=== PATIENT | female | born 1960 | race Caucasian/White ===

== ENCOUNTER → 2017-03-17 | Outpatient (CLI) | payer BC ==
--- NOTE | 2017-03-18 10:12 | MM ---
Reason for exam: screening (asymptomatic). Last mammogram was performed 1 year and 4 months ago. History: Took hormonal contraceptives for 7 years. Physical Findings: A clinical breast exam by your physician is recommended on an annual basis and results should be correlated with mammographic findings. MG Screening Mammo w CAD Bilateral CC and MLO view(s) were taken. Prior study comparison: November 28, 2015, bilateral MG screening mammo w CAD. October 08, 2014, bilateral MG screening mammo w CAD. April 28, 2013, bilateral digital screening mammo w/CAD. The breast tissue is heterogeneously dense. This may lower the sensitivity of mammography. No significant changes when compared with prior studies. ASSESSMENT: Negative, BI-RAD 1 RECOMMENDATION: Routine screening mammogram of both breasts in 1 year.
== END | disposition home or self-care (01) ==
LOC: RADMAMWWP 16:25
PROVIDERS: ATTEND Obstetrics & Gynecology
DX: Z12.31 Encounter for screening mammogram for malignant neoplasm of breast (principal)

== ENCOUNTER → 2018-04-08 | Outpatient (CLI) | payer BC ==
--- NOTE | 2018-04-12 09:06 | MM ---
Reason for exam: screening (asymptomatic). Last mammogram was performed 1 year and 1 month ago. History: Patient is postmenopausal. Took hormonal contraceptives for 7 years. Physical Findings: A clinical breast exam by your physician is recommended on an annual basis and results should be correlated with mammographic findings. MG 3D Screening Mammo W/Cad Bilateral CC and MLO view(s) were taken. Prior study comparison: March 17, 2017, bilateral MG screening mammo w CAD. November 28, 2015, bilateral MG screening mammo w CAD. The breast tissue is heterogeneously dense. This may lower the sensitivity of mammography. No significant changes when compared with prior studies. ASSESSMENT: Negative, BI-RAD 1 RECOMMENDATION: Routine screening mammogram of both breasts in 1 year.
== END | disposition home or self-care (01) ==
LOC: RADMAMWWP 15:23
PROVIDERS: ATTEND Obstetrics & Gynecology
DX: Z12.31 Encounter for screening mammogram for malignant neoplasm of breast (principal)
CPT/HCPCS: 77063; 77067

== ENCOUNTER → 2019-04-19 | Outpatient (CLI) | payer BC ==
--- NOTE | 2019-04-20 12:07 | BD ---
EXAMINATION TYPE: Axial Bone Density DATE OF EXAM: 04/19/2019 COMPARISON: NONE CLINICAL HISTORY: M 87.9 Height: 72 Weight: 185.0 FRAX RISK QUESTIONS: Alcohol (3 or more units per day): no Family History (Parent hip fracture): no Glucocorticoids (More than 3mos): no (Ex: prednisone, prednisolone, methylprednisolone, dexamethasone, and hydrocortisone). History of Fracture in Adulthood: no Secondary Osteoporosis: 1. Type 1 Diabetes: no 2. Hyperthyroidism: no 3. Menopause before 45: no 4. Malnutrition: no 5. Chronic liver disease: no Rheumatoid Arthritis: no Current Tobacco Use: no RISK FACTORS HISTORY OF: History of Wrist Fracture: rt wrist When: as a child Family History of Osteoporosis: no Active: yes Diet low in dairy products/other sources of calcium: no Postmenopausal woman: age 56 Lost more than 2 inches in height since high school: no MEDICATIONS: none Additional History: EXAM MEASUREMENTS: Bone mineral densitometry was performed using the [employer]. Bone mineral density as measured about the Lumbar spine is: ----- L1-L4(G/cm2): 1.183 T Score Values are as follows: ----- L2: -0.9 ----- L3: -0.6 ----- L4: 1.6 ----- L1-L4: 0.0 Bone mineral density : baseline Bone mineral density about the R hip (g/cm2): 1.029 Bone mineral density about the L hip (g/cm2): 0.959 T Score values are as follows: -----R Neck: -0.1 -----L Neck: -0.6 -----R Total: 0.2 -----L Total: -0.1 Bone mineral density : baseline IMPRESSION: Normal (Values between +1 and -1 indicate normal bone mass). Consider repeating this study in 5 year s or sooner if there is some new clinical indication. NOTE: T-SCORE=SD OF THE YOUNG ADULT MEAN.
--- NOTE | 2019-04-21 09:49 | MM ---
Reason for exam: screening (asymptomatic). Last mammogram was performed 1 year ago. History: Patient is postmenopausal. Took hormonal contraceptives for 7 years. Physical Findings: A clinical breast exam by your physician is recommended on an annual basis and results should be correlated with mammographic findings. MG 3D Screening Mammo W/Cad Bilateral CC and MLO view(s) were taken. Prior study comparison: April 08, 2018, bilateral MG 3d screening mammo w/cad. March 17, 2017, bilateral MG screening mammo w CAD. The breast tissue is extremely dense which could obscure a lesion on mammography. There is no discrete abnormality. ASSESSMENT: Negative, BI-RAD 1 RECOMMENDATION: Routine screening mammogram of both breasts in 1 year.
== END | disposition home or self-care (01) ==
LOC: RADMAMWWP 15:20
PROVIDERS: ATTEND Internal Medicine
DX: Z12.31 Encounter for screening mammogram for malignant neoplasm of breast (principal); M85.9 Disorder of bone density and structure, unspecified
CPT/HCPCS: 77063; 77067; 77080

== ENCOUNTER → 2020-12-05 | Outpatient (CLI) | payer BC ==
--- NOTE | 2020-12-05 11:11 | MM ---
Reason for exam: screening (asymptomatic). Last mammogram was performed 1 year and 8 months ago. History: Patient is postmenopausal and history of other cancer. Took hormonal contraceptives for 7 years. Physical Findings: A clinical breast exam by your physician is recommended on an annual basis and results should be correlated with mammographic findings. MG 3D Screening Mammo W/Cad Bilateral CC and MLO view(s) were taken. Prior study comparison: April 19, 2019, bilateral MG 3d screening mammo w/cad. April 08, 2018, bilateral MG 3d screening mammo w/cad. The breast tissue is heterogeneously dense. This may lower the sensitivity of mammography. ASSESSMENT: Negative, BI-RAD 1 RECOMMENDATION: Routine screening mammogram of both breasts in 1 year.
== END | disposition home or self-care (01) ==
LOC: RADMAMWWP 07:30
PROVIDERS: ATTEND Obstetrics & Gynecology
DX: Z12.31 Encounter for screening mammogram for malignant neoplasm of breast (principal); Z78.0 Asymptomatic menopausal state
CPT/HCPCS: 77063; 77067

== ENCOUNTER → 2021-12-22 | Outpatient (CLI) | payer BC ==
--- NOTE | 2021-12-23 07:51 | MM ---
Reason for Exam: Screening (asymptomatic). Last mammogram was performed 1 year(s) and 1 month(s) ago. Patient History: Menarche at age 13. First Full-Term at age 32. Late child-bearing (after 30). Postmenopausal. Other cancer. Patient used Hormonal Contraceptives for 7 years. Risk Values: Mila 5 year model risk: 2.1%. NCI Lifetime model risk: 11.2%. Prior Study Comparison: 04/08/2018 Bilateral Screening Mammogram, [facility]. 04/19/2019 Bilateral Screening Mammogram, [facility]. 12/05/2020 Bilateral Screening Mammogram, [facility]. Tissue Density: The breast tissue is heterogeneously dense. This may lower the sensitivity of mammography. Findings: Analyzed By CAD. There is no suspicious group of microcalcifications or new suspicious mass in either breast. Overall Assessment: Negative, BI-RAD 1 Management: Screening Mammogram of both breasts in 1 year. A clinical breast exam by your physician is recommended on an annual basis and results should be correlated with mammographic findings. Electronically signed and approved by: Raúl Iverson M.D. Radiologis
== END | disposition home or self-care (01) ==
LOC: RADMAMWWP 08:26
PROVIDERS: ATTEND Obstetrics & Gynecology
DX: Z12.31 Encounter for screening mammogram for malignant neoplasm of breast (principal); Z78.0 Asymptomatic menopausal state
CPT/HCPCS: 77063; 77067

== ENCOUNTER → 2023-02-09 | Outpatient (CLI) | payer BC ==
--- NOTE | 2023-02-11 00:28 | MM ---
Reason for Exam: Screening (asymptomatic). Last mammogram was performed 1 year(s) and 1 month(s) ago. Patient History: Menarche at age 13. First Full-Term at age 32. Late child-bearing (after 30). Postmenopausal. Other cancer. Patient used Hormonal Contraceptives for 7 years. Risk Values: Mila 5 year model risk: 2.2%. NCI Lifetime model risk: 10.9%. Prior Study Comparison: 04/19/2019 Bilateral Screening Mammogram, [facility]. 12/05/2020 Bilateral Screening Mammogram, [facility]. 12/22/2021 Bilateral MG 3D screening mammo w/cad, [facility]. Tissue Density: The breast tissue is heterogeneously dense. This may lower the sensitivity of mammography. Findings: Analyzed By CAD. Coarse calcifications posterior upper outer quadrant left breast are unchanged. There is no suspicious group of microcalcifications or new suspicious mass in either breast. Overall Assessment: Benign, BI-RAD 2 Management: Screening Mammogram of both breasts in 1 year. . Patient should continue monthly self-breast exams. A clinical breast exam by your physician is recommended on an annual basis. This exam should not preclude additional follow-up of suspicious palpable abnormalities. Note on Mila scores and lifetime risk: 1. A Mila score greater than 3% is considered moderate risk. If this is the case, consider specialist referral to assess eligibility for a risk reducing agent. 2. If overall lifetime risk for the development of breast cancer is 20% or higher, the patient may qualify for future screening with alternating mammogram and breast MRI. Electronically signed and approved by: Ha Leon M.D. Radiologist
== END | disposition home or self-care (01) ==
LOC: RADMAMWWP 07:07
PROVIDERS: ATTEND Internal Medicine
DX: Z12.31 Encounter for screening mammogram for malignant neoplasm of breast (principal); Z78.0 Asymptomatic menopausal state
CPT/HCPCS: 77063; 77067

== ENCOUNTER → 2024-03-31 | Outpatient (CLI) | payer BC ==
--- NOTE | 2024-03-31 12:46 | BD ---
EXAMINATION TYPE: Axial Bone Density DATE OF EXAM: 03/31/2024 CLINICAL HISTORY: 63 years old Female. ICD-10 CODE: M85.851 MENOPAUSAL Height: 71.2 Weight: 205 FRAX RISK QUESTIONS: 3. Menopause before 45: no at 56 RISK FACTORS HISTORY OF: MEDICATIONS: vit d and calcium EXAM MEASUREMENTS: Bone mineral densitometry was performed using the [employer] System. Bone mineral density as measured about the Lumbar spine is: ----- L1-L4(G/cm2): 1.119 T Score Values are as follows: ----- L1: -1.1 ----- L2: -1.1 ----- L3: -0.9 ----- L4: 0.6 ----- L1-L4: -0.5 Z Score Values are as follows: ----- L1: -0.7 ----- L2: -0.7 ----- L3: -0.5 ----- L4: 0.9 ----- L1-L4: -0.2 Bone mineral density has: Decreased -5.4% since study of: 04.19.2019 Bone mineral density about the R hip (g/cm2): 0.966 Bone mineral density about the L hip (g/cm2): 1.002 T Score values are as follows: -----R Neck: -0.5 -----L Neck: -0.3 -----R Total: 0.0 -----L Total: 0.0 Z Score values are as follows: -----R Neck: 0.0 -----L Neck: 0.1 -----R Total: 0.0 -----L Total: 0.3 Bone mineral density has: Decreased -2.5% since study of: 04.19.2019 FRAX%s: The graph provided illustrates a 6.9% chance for a major osteoporotic fx and a 0.3% chance fo r the hips probability for fx in 10 years time. IMPRESSION: Osteopenia (T Score between -2.5 and -1). There is slightly increased risk of fracture and the patient may be considered for treatment. Re-Screen 2-5 years. NOTE: T-SCORE=SD OF THE YOUNG ADULT MEAN. [facility], , 03/31/2024 12:44 PM
--- NOTE | 2024-03-31 13:58 | MM ---
Reason for Exam: Screening (asymptomatic). Last mammogram was performed 1 year(s) and 2 month(s) ago. Patient History: Menarche at age 13. First Full-Term at age 32. Late child-bearing (after 30). Postmenopausal. Other cancer. Patient used Hormonal Contraceptives for 7 years. Risk Values: Mila 5 year model risk: 2.2%. NCI Lifetime model risk: 10.6%. Prior Study Comparison: 12/05/2020 Bilateral Screening Mammogram, [facility]. 12/22/2021 Bilateral MG 3D screening mammo w/cad, [facility]. 02/09/2023 Bilateral MG 3D screening mammo w/cad, [facility]. Tissue Density: The breasts are heterogeneously dense, which may obscure small masses. Findings: Analyzed By CAD. Right breast: There is no suspicious group of microcalcifications or new suspicious mass. Left breast: There is no suspicious group of microcalcifications or new suspicious mass. Overall Assessment: Negative, BI-RAD 1 Management: Screening Mammogram of both breasts in [address] [facility] will attempt to contact patient to return for supplemental views and ultrasound if indicated. Patient should continue monthly self-breast exams. A clinical breast exam by your physician is recommended on an annual basis. This exam should not preclude additional follow-up of suspicious palpable abnormalities. Note on Mila scores and lifetime risk: 1. A Mila score greater than 3% is considered moderate risk. If this is the case, consider specialist referral to assess eligibility for a risk reducing agent. 2. If overall lifetime risk for the development of breast cancer is 20% or higher, the patient may qualify for future screening with alternating mammogram and breast MRI. [facility], , 03/31/2024 1:51 PM. Electronically signed and approved by: Arias Huber DO
== END | disposition home or self-care (01) ==
LOC: RADBDWWP 08:09
PROVIDERS: ATTEND Internal Medicine
CPT/HCPCS: 77063; 77067; 77080

== ENCOUNTER → 2024-04-04 | Outpatient (CLI) | payer BC ==
--- NOTE | 2024-04-04 17:40 | US ---
EXAMINATION TYPE: US carotid duplex BILAT DATE OF EXAM: 04/04/2024 COMPARISON: NONE CLINICAL INDICATION: Female, 63 years old with history of I65.23 OCCLUSION AND STENOSIS; Stenosis TECHNIQUE: Grayscale, color Doppler and spectral Doppler evaluation of the bilateral carotid systems and vertebral arteries.Indirect Doppler criteria was utilized. FINDINGS: EXAM MEASUREMENTS: RIGHT: Peak Systolic Velocity (PSV) cm/sec ----- Right CCA: 78.7 ----- Right ICA: 96.3 ----- Right ECA: 74.3 ICA/CCA ratio: 1.2 RIGHT: End Diastole cm/sec ----- Right CCA: 29.2 ----- Right ICA: 39.1 ----- Right ECA: 12.8 LEFT: Peak Systolic Velocity (PSV) cm/sec ----- Left CCA: 82.0 ----- Left ICA: 106.2 ----- Left ECA: 82.0 ICA/CCA ratio: 1.3 LEFT: End Diastole cm/sec ----- Left CCA: 24.8 ----- Left ICA: 41.3 ----- Left ECA: 13.8 VERTEBRALS (direction of flow): Right Vertebral: Antegrade Left Vertebral: Antegrade Rhythm: Normal GENERAL OFFICE ASSISTANT NOTES: No significant stenosis seen IMPRESSION: Right: Less than 50% stenosis of the carotid bifurcation. Normal (no stenosis)=ICA PSV < 125 cm/s: ra debra < 2.0: ICA EDV<40 cm/s. Left: Less than 50% stenosis of the carotid bifurcation. Normal (no stenosis)=ICA PSV < 125 cm/s: rat io < 2.0: ICA EDV<40 cm/s. Criteria for Assigning % of Stenosis / Diameter reduction (Estimation based on the indirect measurements of the internal carotid artery velocities (ICA PSV). 1. Normal (no stenosis)=ICA PSV < 125 cm/s: ratio < 2.0: ICA EDV<40 cm/s. 2. Less than 50% stenosis=ICA PSV < 125 cm/s: ratio < 2.0: ICA EDV<40 cm/s. 3. 50 to 69% stenosis=ICA PSV of 125 to 230 cm/s: ration 2.0 ? 4.0: ICA EDV 40-100 cm/s. 4. Greater than 70% stenosis to near occlusion= ICA PSV > 230 cm/s: ratio > 4.0: ICA EDV > 100 cm/s. 5. Near occlusion= ICA PSV velocities may be low or undetectable: variable ratio and ICA EDV. 6. Total occlusion=unable to detect flow. [facility], , 04/04/2024 5:37 PM
== END | disposition home or self-care (01) ==
LOC: RADUSWWP 15:23
PROVIDERS: ATTEND Internal Medicine
CPT/HCPCS: 93880